=== PATIENT | female | born 1945 | race African-American/Black ===

== ENCOUNTER 2019-03-12 23:07 | Inpatient (IN) | payer OTHER ==
[~2019-03-12] VITALS: Ht 152.4 cm; Wt 71.4 kg
[2019-03-12 23:16] VITALS: BP 105/74
[2019-03-12] MEDS ORDERED: LIPITOR80 MG PO (23:20)
[2019-03-12] MEDS ORDERED: TOPAMAX50 MG PO (23:21)
[2019-03-12] MEDS ORDERED: LEVOTHYROXINE100 MCG PO (23:21)
[2019-03-12] MEDS ORDERED: COZAAR 25 MG TA25 M2 PO (23:21)
[2019-03-12] MEDS ORDERED: ASA81BEC PO (23:22)
[2019-03-12] MEDS ORDERED: CARVEDILOL12.5 MG PO (23:22)
[2019-03-13 00:25] LABS: ABSOLUTE NEUTROPHILS 2.2 thou/uL (1.4-8.2); BASOPHILS 0.9 % (0.0-2.0); HEMATOCRIT 39.2 % (37.0-47.0); HEMOGLOBIN 12.7 gm/dL (12.0-15.0); LYMPHOCYTES 36.8 % (24.0-44.0); MCH 30.8 pg (26.0-34.0); MCHC 32.4 g/dL (28.0-37.0); MCV 95.1 fL (80.0-100.0); MONOCYTES 5.4 % (1.0-8.0); PLATELET COUNT 139 thou/uL (150-400); POLYS 56.9 % (36.0-66.0); RBC 4.12 mil/uL (4.20-5.00); WBC 3.9 thou/uL (4.0-11.0)
[2019-03-13 01:02] LABS: ANION GAP 9 mmol/L (7-16); BUN 22 mg/dL (7-18); CALCIUM 10.5 mg/dL (8.5-10.1); CHLORIDE 111 mmol/L (98-107); CO2 21 mmol/L (21-32); CREATININE 1.5 mg/dL (0.6-1.0); GLUCOSE 161 mg/dL (74-106); POTASSIUM 4.7 mmol/L (3.5-5.1); SODIUM 141 mmol/L (136-145)
[2019-03-13 01:14] LABS: ALBUMIN 3.8 g/dL (3.4-5.0); LIPASE 299 U/L (73-393); SGOT 21 U/L (15-37); SGPT 23 U/L (30-65); TOTAL BILIRUBIN 0.5 mg/dL (<0.1-1.0); TOTAL PROTEIN 7.7 g/dL (6.4-8.2); TROPONIN-I <0.06 ng/mL (<0.06)
[2019-03-13 03:13] LABS: URINE BILIRUBIN NEGATIVE (Negative); URINE BLOOD NEGATIVE (Negative); URINE CLARITY TURBID; URINE COLOR YELLOW; URINE GLUCOSE-RANDOM* NEGATIVE (Negative); URINE KETONES NEGATIVE (Negative); URINE LEUKOCYTES-REFLEX NEGATIVE (Negative); URINE NITRITE-REFLEX NEGATIVE (Negative); URINE PROTEIN (DIPSTICK) NEGATIVE (Negative); URINE SPECIFIC GRAVITY >= 1.030 (1.005-1.035)
[2019-03-13 07:09] VITALS: BP 119/86
[2019-03-13 07:40] VITALS: BP 133/90
--- NOTE | 2019-03-13 07:56 | EKG ---
[place] [address] [facility] [address] [place] [address] ELECTROCARDIOGRAM REPORT Name: MEDLEYJULISA Room #: 170-8 ADM IN M.R.#: [id number] Admission: 03/13/19 Attend Phys: Toya Lemons MD Discharge: Date of : 43 Report #: [id number] THIS REPORT FOR: //name// [facility] ED Test Date: 2019-03-12 Test Time: 23:38:03 Pat Name: JULISA MEDLEY Department: Room: 170 Gender: F Gate Attendant: jazzy : 1945 Requested By: Jessee Neil Order Number: [id number] MD: Lew Iyer Measurements Intervals [place] Rate: 65 P: 66 PA: 162 QRS: -25 QRSD: 147 T: 14 QT: 427 QTc: 444 Interpretive Statements Sinus rhythm Probable left atrial enlargement Right bundle branch block Anteroseptal infarct, age indeterminate No previous ECG available for comparison Electronically Signed On 03-13-2019 7:55:51 ALTERATION HAND by Lew Iyer [email or web address] <ELECTRONICALLY SIGNED> By: Lew Iyer MD 03/13/19 0755 [id number] 37 Lew Iyer MD /RO
[2019-03-13 08:04] VITALS: BP 132/83
--- NOTE | 2019-03-13 09:31 | 2DMMODE ---
[facility] [place] [address] 2 D/M-MODE ECHOCARDIOGRAM Name: MEDLEYJULISA Room #: 356-P ADM IN M.R.#: [id number] Admission: 03/13/19 Attend Phys: Geovanna Simpson Discharge: Date of : 43 Report #: [id number] THIS REPORT FOR: //name// APPROVED REPORT Study performed: 03/13/2019 08:29:41 EXAM: Comprehensive 2D, Doppler, and color-flow Echocardiogram Patient Location: Echo lab Room #: [facility] Status: routine BSA: 1.85 HR: 69 bpm BP: 133/90 mmHg Rhythm: NSR Other Information Study Quality: Adequate Indications Dizziness and Vertigo Syncope 2D Dimensions RVDd: 34.75 mm IVSd: 12.00 (7-11mm) LVOT Diam: 20.72 (18-24mm) LVDd: 48.00 mm PWd: 12.00 (7-11mm) Ascending Ao: 37.00 (22-36mm) LVDs: 34.42 (25-40mm) Aortic Root: 36.12 mm Volumes Left Atrial Volume (Systole) Single Plane 4CH: 33.85 mL Single Plane 2CH: 33.95 mL LA ESV Index: 20.00 mL/m2 Aortic Valve AoV Peak Pito.: 1.29 m/s AO Peak Gr.: 6.68 mmHg LVOT Max P.36 mmHg LVOT Max V: 1.04 m/s DAIANA Vmax: 2.72 cm2 Mitral Valve E/A Ratio: 0.6 MV Decel. Time: 305.29 ms [facility] [address] [place] [address] 2 D/M-MODE ECHOCARDIOGRAM Name: EMDLEYJULISA Room #: 356-P [facility] IN .R.#: [id number] Admission: 03/13/19 Attend Phys: Geovanna Simpson Discharge: Date of : 43 Report #: [id number] MV E Max Pito.: 0.66 m/s MV A Pito.: 1.04 m/s MV PHT: 88.53 ms IVRT: 119.95 ms Pulmonary Valve PV Peak Pito.: 0.81 m/s PV Peak Gr.: 2.62 mmHg Pulmonary Vein P Vein S: 0.51 m/s P Vein D: 0.45 m/s P Vein S/D Ratio: 1.13 Tricuspid Valve TR Peak Pito.: 2.33 m/s RAP Estimate: 5.00 mmHg TR Peak Gr.: 22.00 mmHg PA Pressure: 27.00 mmHg Left Ventricle The left ventricle is normal size. Mild concentric left ventricular hypertrophy. Left ventricular systolic function is normal. LVEF is 55%. Mild diastolic dysfunction is present (impaired relaxation pattern). Right Ventricle The right ventricle is normal size. The right ventricular systolic function is normal. Atria The left atrium size is normal. The right atrium size is normal. Aortic Valve The aortic valve is normal in structure. Mild aortic regurgitation. There is no aortic valvular stenosis. Mitral Valve The mitral valve is normal in structure. Trace mitral regurgitation. No evidence of mitral valve stenosis. Tricuspid Valve The tricuspid valve is normal in structure. Trace tricuspid regurgitation. Estimated PAP is 25-30mmHg. Pulmonic Valve The pulmonary valve is normal in structure. Trace pulmonic [facility] [address] [place] [address] 2 D/M-MODE ECHOCARDIOGRAM Name: JULISA MEDLEY Room #: 356-P [facility] IN M.R.#: [id number] Admission: 03/13/19 Attend Phys: Geovanna Simpson Discharge: Date of : 43 Report #: [id number] regurgitation. Great Vessels The aortic root is normal in size. The ascending aorta is normal in size. IVC is normal in size and collapses >50% with inspiration. Pericardium There is no pericardial effusion. <Conclusion> The left ventricle is normal size. Mild concentric left ventricular hypertrophy. Left ventricular systolic function is normal. Mild diastolic dysfunction is present (impaired relaxation pattern). The right ventricle is normal size. The left atrium size is normal. Mild aortic regurgitation. Trace mitral regurgitation. Trace tricuspid regurgitation. Estimated PAP is 25-30mmHg. <ELECTRONICALLY SIGNED> By: Shiv Flores MD 03/13/19929 9 9 Shiv Flores MD /INF
[2019-03-13 10:45] VITALS: BP 125/80; BP 126/74; BP 132/85
[2019-03-13 11:54] LABS: TSH 0.024 uIU/mL (0.358-3.740)
[2019-03-13] MEDS ORDERED: AIMOVIG AU140 MG/1 M SUBQ (19:12)
[2019-03-13 19:43] VITALS: BP 147/101
[2019-03-13 23:10] LABS: GLYCOHEMOGLOBIN (HGB A1C) 5.6 % (4.8-5.6)
[2019-03-14 00:20] VITALS: BP 132/83
[2019-03-14 04:18] VITALS: BP 131/87
[2019-03-14 05:41] LABS: ABSOLUTE NEUTROPHILS 2.2 thou/uL (1.4-8.2); BASOPHILS 0.4 % (0.0-2.0); HEMATOCRIT 34.4 % (37.0-47.0); HEMOGLOBIN 11.3 gm/dL (12.0-15.0); LYMPHOCYTES 30.1 % (24.0-44.0); MCHC 32.8 g/dL (28.0-37.0); MCV 94.8 fL (80.0-100.0); PLATELET COUNT 126 thou/uL (150-400); POLYS 61.5 % (36.0-66.0); RBC 3.63 mil/uL (4.20-5.00); RDW 15.1 % (10.5-14.5); WBC 3.6 thou/uL (4.0-11.0)
[2019-03-14 05:56] LABS: CALCIUM 9.1 mg/dL (8.5-10.1); CREATININE 1.2 mg/dL (0.6-1.0); MAGNESIUM 1.9 mg/dL (1.8-2.4); POTASSIUM 4.1 mmol/L (3.5-5.1)
[2019-03-14 07:46] VITALS: BP 142/87
[2019-03-14 16:04] VITALS: BP 129/82
[2019-03-14 16:15] VITALS: BP 124/82; BP 137/84; BP 140/86
[2019-03-14 19:05] VITALS: BP 123/70
[2019-03-15 04:08] VITALS: BP 127/81
[2019-03-15 08:04] VITALS: BP 144/101; BP 148/93
[2019-03-15] MEDS ORDERED: CARVEDILOL12.5 MG PO (13:57)
[2019-03-15] MEDS ORDERED: SYNTHROID75 MCG PO (13:57)
[2019-03-15] MEDS ORDERED: MECLIZINE HCL25 MG PO (13:57)
[2019-03-15 14:07] VITALS: BP 148/93
[2019-03-15] MEDS ORDERED: PROTONIX 20 MG20 M1 PO (15:45)
[2019-03-15 17:05] VITALS: BP 117/76
== END 2019-03-15 20:00 | disposition home health service (06) | DRG 312 ==
LOC: ER 23:07 → EROBS 03-13 06:29 → 3W 03-13 06:29
PROVIDERS: Emergency Medicine; Nurse Practitioner; ADMIT Hospitalist
DX: R55 Syncope and collapse (principal); N17.9 Acute kidney failure, unspecified; I69.354 Hemiplegia and hemiparesis following cerebral infarction affecting left non-dominant side; G43.909 Migraine, unspecified, not intractable, without status migrainosus; I10 Essential (primary) hypertension; E03.9 Hypothyroidism, unspecified; E78.5 Hyperlipidemia, unspecified; F17.210 Nicotine dependence, cigarettes, uncomplicated; F12.90 Cannabis use, unspecified, uncomplicated; E86.0 Dehydration; R73.9 Hyperglycemia, unspecified; D69.6 Thrombocytopenia, unspecified; E74.39 Other disorders of intestinal carbohydrate absorption; E53.8 Deficiency of other specified B group vitamins; I73.9 Peripheral vascular disease, unspecified; Z90.49 Acquired absence of other specified parts of digestive tract; Z79.82 Long term (current) use of aspirin; I25.2 Old myocardial infarction; Z86.711 Personal history of pulmonary embolism; Z79.01 Long term (current) use of anticoagulants; Z82.49 Family history of ischemic heart disease and other diseases of the circulatory system; Z86.718 Personal history of other venous thrombosis and embolism; Z83.3 Family history of diabetes mellitus; Z79.899 Other long term (current) drug therapy
CPT/HCPCS: 10879

== ENCOUNTER 2019-03-18 11:12 | Emergency (ER) | payer OTHER ==
[~2019-03-18] VITALS: Ht 160 cm; Wt 68.0 kg
[~2019-03-18 11:12] MED LIST: AIMOVIG AU140 MG/1 M SUBQ; ASA81BEC PO; CARVEDILOL12.5 MG PO; COZAAR 25 MG TA25 M2 PO; LEVOTHYROXINE100 MCG PO; LIPITOR80 MG PO; MECLIZINE HCL25 MG PO; PROTONIX 20 MG20 M1 PO; SYNTHROID75 MCG PO; TOPAMAX50 MG PO
[2019-03-18] MEDS ORDERED: FIORINAL 50-321 EACH PO (12:31)
[2019-03-18 12:33] VITALS: BP 116/70
== END 2019-03-18 12:48 | disposition home or self-care (01) ==
LOC: ER 11:12
DX: G43.909 Migraine, unspecified, not intractable, without status migrainosus (principal); I10 Essential (primary) hypertension; E03.9 Hypothyroidism, unspecified; E78.5 Hyperlipidemia, unspecified; K21.9 Gastro-esophageal reflux disease without esophagitis; F17.210 Nicotine dependence, cigarettes, uncomplicated; Z86.73 Personal history of transient ischemic attack (TIA), and cerebral infarction without residual deficits

== ENCOUNTER 2020-01-03 09:20 | Emergency (ER) | payer OTHER ==
[~2020-01-03] VITALS: Ht 160 cm; Wt 71.2 kg
--- NOTE | ~2020-01-03 | EMS ---
[place] [address] EMS Patient Care Report Name: JULISA MEDLEY Room #: REG ENA Jasmine#: [id number] Admission: 01/03/20 Attend Phys: Discharge: Date of : 43 Report #: [id number] THIS REPORT FOR: //name// Report Transmitted: 01/03/2020 09:42 EMS Care Summary [place], [place]/[facility] Incident [id number] @ 01/03/2020 08:29 Incident Location [address] [place] [address] Patient JULISA MEDLEY Female, 74 Years 1945 Patient Address [address] [place] [address] Patient History Hypertension (HTN),Thyroid Disease, Patient Allergies No known allergies, Patient Medications Levothyroxine, Amlodipine, Carvedilol, Chief Complaint I got dizzy and had a hot flash Disposition Transported No Lights/[place] Dispatch Reason Sick Person Transported To [facility] Narrative Called to the scene for a sick. Upon arrival, P36 on the scene. Pt was CHRIS x [address] sitting on the steps in minor to no distress. Pt stated she woke up this morning and everything was normal and then after she had been up a while experience a brief episode of feeling dizzy and a [place] [address] EMS Patient Care Report Name: JULISA MEDLEY Room #: REG Mitali#: [id number] Admission: 01/03/20 Attend Phys: Discharge: Date of : 43 Report #: [id number] feels fine right now and does not want to go to the hospital but the family insists. P36 had obtained some vitals and was in the process of a 12 lead. Pt was assisted to the EMS cot and loaded into the ambulance. Attempted IV, D-stick. En route: pt states she feels fine and wants to just go home. RR to [facility]. Arrived: pt taken to ER #7 and moved to their bed w/o incident. Pt care & report to ER staff. Initial Vitals @08:41P: 226, @08:40P: 82,CO: 0,SpO2: 100, @PTAP: 85,SpO2: 82, @08:44P: 154,SpO2: 100, @PTAP: 78,BP: 88/62,SpO2: 100, @PTAP: 84,BP: 98/65,CO: 0,SpO2: 99, @08:44P: 78,R: 18,BP: 120/80,Pain: 0/10,GCS: 15,Glucose: 147,SpO2: 99,Revised Trauma: 12,LA Suspected: false @08:43P: 77,LA Suspected: false Assessments @09:39MENTAL:Person Oriented,Time Oriented,Place Oriented,Event Oriented,SKIN:HEENT:LUNG SOUNDS:ABDOMEN:PELVIS//GI:EXTREMITIES:Left Arm: No Abnormalities,Right Arm: No Abnormalities,Left Leg: No Abnormalities,Right Leg: No Abnormalities,PULSE:Radial: 2+ Normal,NEURO: Impression Dizziness Procedures @08:4312-Lead ECGResponse: UnchangedSucceeded@09:12Saline Lock cc (20 ga) Site: Forearm-RightResponse: UnchangedFailed@09:36ALS AssessmentResponse: UnchangedSucceeded@09:36StretcherResponse: Unchanged@09:363-Lead ECGResponse: UnchangedSucceeded Timeline SEAT PACK INSPECTOR,BP: / M,PULSE: 85,RR: R,SPO2: 82 Ox,ETCO2: ,BG: ,PAIN: ,GCS: , SEAT PACK INSPECTOR,BP: 88/62 M,PULSE: 78,RR: R,SPO2: 100 Ox,ETCO2: ,BG: ,PAIN: ,GCS: , SEAT PACK INSPECTOR,BP: 98/65 M,PULSE: 84,RR: R,SPO2: 99 Ox,ETCO2: ,BG: ,PAIN: ,GCS: , 08:28,Call Received 08:28,Dispatch Notified 08:29,Dispatched 08:31,En Route 08:38,On Scene 08:40,At Patient 08:40,BP: / M,PULSE: 82,RR: R,SPO2: 100 Ox,ETCO2: ,BG: ,PAIN: ,GCS: , 08:41,BP: / M,PULSE: 226,RR: R,SPO2: Ox,ETCO2: ,BG: ,PAIN: ,GCS: , 08:43,12-Lead ECG,Response: UnchangedSucceeded, [facility] [address] [place] [address] EMS Patient Care Report Name: GALINDOJULISA Room #: REG ENA Jasmine#: [id number] Admission: 01/03/20 Attend Phys: Discharge: Date of : 43 Report #: [id number] 08:43,BP: / M,PULSE: 77,RR: R,SPO2: Ox,ETCO2: ,BG: ,PAIN: ,GCS: , 08:44,BP: / M,PULSE: 154,RR: R,SPO2: 100 Ox,ETCO2: ,BG: ,PAIN: ,GCS: , 08:44,BP: 120/80 M,PULSE: 78,RR: 18 R,SPO2: 99 Ox,ETCO2: ,B,PAIN: 0,GCS: 15, 09:09,Depart Scene 09:12,Saline Lock cc 20 ga Site: Forearm-Right,Response: UnchangedFailed, 09:17,At Destination 09:36,ALS Assessment,Response: UnchangedSucceeded, 09:36,Stretcher,Response: Unchanged 09:36,3-Lead ECG,Response: UnchangedSucceeded, 09:45,Call Closed Disclaimer v1.1 Copyright 2020 [employer] This EMS Care Summary contains data elements from the applicable legal record (which may be displayed differently). It is designed to provide pertinent information for the following purposes: continuity of care, clinical quality, and state data reporting. The complete legal record is available to ED staff and administrators of the receiving hospital in ES's Patient Tracker. All data is provided "as is."
[~2020-01-03 09:20] MED LIST changes: +FIORINAL 50-321 EACH PO
[2020-01-03] MEDS ORDERED: NORVASC5 MG PO (09:35)
[2020-01-03 11:05] LABS: ABSOLUTE NEUTROPHILS 3.8 thou/uL (1.4-8.2); BASOPHILS 0.5 % (0.0-2.0); HEMATOCRIT 36.7 % (37.0-47.0); HEMOGLOBIN 12.2 gm/dL (12.0-15.0); LYMPHOCYTES 17.6 % (24.0-44.0); MCH 31.4 pg (26.0-34.0); MCHC 33.1 g/dL (28.0-37.0); MCV 94.8 fL (80.0-100.0); MONOCYTES 5.6 % (1.0-8.0); PLATELET COUNT 144 thou/uL (150-400); POLYS 76.3 % (36.0-66.0); RBC 3.87 mil/uL (4.20-5.00); RDW 15.1 % (10.5-14.5)
[2020-01-03 11:14] LABS: ANION GAP 11 mmol/L (7-16); BUN 26 mg/dL (7-18); CALCIUM 9.6 mg/dL (8.5-10.1); CHLORIDE 113 mmol/L (98-107); CO2 22 mmol/L (21-32); CREATININE 1.7 mg/dL (0.6-1.0); GLUCOSE 96 mg/dL (74-106); SODIUM 146 mmol/L (136-145)
[2020-01-03 11:25] LABS: URINE BILIRUBIN NEGATIVE (Negative); URINE BLOOD NEGATIVE (Negative); URINE CLARITY CLEAR; URINE COLOR YELLOW; URINE GLUCOSE-RANDOM* NEGATIVE (Negative); URINE KETONES NEGATIVE (Negative); URINE LEUKOCYTES-REFLEX 1+ (Negative); URINE NITRITE-REFLEX NEGATIVE (Negative); URINE PROTEIN (DIPSTICK) TRACE (Negative); URINE UROBILINOGEN 0.2 E.U./dl (0.2-1.0)
[2020-01-03 11:25] LABS: ALBUMIN 3.7 g/dL (3.4-5.0); SGOT 13 U/L (15-37); SGPT 13 U/L (30-65); TOTAL BILIRUBIN 0.4 mg/dL (0.2-1.0); TOTAL PROTEIN 7.1 g/dL (6.4-8.2); TROPONIN-I <0.06 ng/mL (<0.06)
[2020-01-03 11:39] VITALS: BP 147/87
[2020-01-03 11:42] LABS: BACTERIA-REFLEX 1-9 Few /HPF (None Seen); CRYSTALS None Seen /LPF (None Seen); HYALINE CASTS 0-3 Few /LPF (None Seen); SQUAMOUS >10 Many /LPF (0-3); URINE RBC None Seen /HPF (0-2); URINE WBC-REFLEX 0-5 Rare /HPF (0-5)
--- NOTE | 2020-01-03 15:32 | EKG ---
[facility] [place] [address] [place] [address] ELECTROCARDIOGRAM REPORT Name: JULISA MEDLEY [id number] Admission: 01/03/20 Attend Phys: Discharge: 01/03/20 Date of : 43 Report #: [id number] THIS REPORT FOR: cc: [facility] - Clinic physician unknown [facility] - Clinic physician unknown Mushtaq Gruber MD [facility] ~ THIS REPORT FOR: //name// [facility] ED Test Date: 2020-01-03 Test Time: 09:34:36 Pat Name: JULISA MEDLEY Department: Room: Gender: F Special Education Coordinator: : 1945 Requested By: Curly Powell Order Number: [id number] MD: Mushtaq Gruber Measurements Intervals [place] Rate: 68 P: 70 VA: 157 QRS: -20 QRSD: 151 T: -42 QT: 407 QTc: 433 Interpretive Statements Sinus rhythm Right bundle branch block Compared to ECG 03/12/2019 23:38:03 PROBABLE ANTEROSEPTAL INFARCT, OLD Electronically Signed On 01-03-2020 15:31:56 CDT by Mushtaq Gruber [email or web address] <ELECTRONICALLY SIGNED> By: Mushtaq Gruber MD, FACC 01/03/20 1531 0934 0934 Mushtaq Gruber MD, HAWA /EPI
== END 2020-01-03 11:55 | disposition home or self-care (01) ==
LOC: ER 09:20
PROVIDERS: Emergency Medicine
DX: R42 Dizziness and giddiness (principal); I12.9 Hypertensive chronic kidney disease with stage 1 through stage 4 chronic kidney disease, or unspecified chronic kidney disease; N18.9 Chronic kidney disease, unspecified; G43.909 Migraine, unspecified, not intractable, without status migrainosus; E03.9 Hypothyroidism, unspecified; E78.5 Hyperlipidemia, unspecified; K21.9 Gastro-esophageal reflux disease without esophagitis; F17.210 Nicotine dependence, cigarettes, uncomplicated; Z79.899 Other long term (current) drug therapy; Z79.82 Long term (current) use of aspirin

== ENCOUNTER 2020-06-10 14:23 | Emergency (ER) | payer OTHER ==
[~2020-06-10] VITALS: Ht 160 cm; Wt 72.6 kg
[~2020-06-10 14:23] MED LIST changes: +NORVASC5 MG PO
[2020-06-10 15:39] VITALS: BP 164/95
== END 2020-06-10 15:40 | disposition home or self-care (01) ==
LOC: ER 14:23
DX: S80.12XA Contusion of left lower leg, initial encounter (principal); M79.604 Pain in right leg; R53.1 Weakness; G43.909 Migraine, unspecified, not intractable, without status migrainosus; I10 Essential (primary) hypertension; E03.9 Hypothyroidism, unspecified; K21.9 Gastro-esophageal reflux disease without esophagitis; E78.5 Hyperlipidemia, unspecified; F17.210 Nicotine dependence, cigarettes, uncomplicated; Z86.73 Personal history of transient ischemic attack (TIA), and cerebral infarction without residual deficits; Z79.899 Other long term (current) drug therapy; Z79.82 Long term (current) use of aspirin; V89.2XXA Person injured in unspecified motor-vehicle accident, traffic, initial encounter; Y93.89 Activity, other specified; Y92.488 Other paved roadways as the place of occurrence of the external cause; Y99.8 Other external cause status

== ENCOUNTER 2021-01-13 15:35 | Emergency (ER) | payer OTHER ==
[~2021-01-13] VITALS: Ht 160 cm; Wt 72.6 kg
[2021-01-13] MEDS ORDERED: NEURONTIN 300M300 M2 PO (15:43)
[2021-01-13] MEDS ORDERED: NORCO5 PO (17:33)
[2021-01-13 17:55] VITALS: BP 200/118
== END 2021-01-13 18:09 | disposition home or self-care (01) ==
LOC: ER 15:35
DX: S80.11XA Contusion of right lower leg, initial encounter (principal); G43.909 Migraine, unspecified, not intractable, without status migrainosus; I10 Essential (primary) hypertension; E03.9 Hypothyroidism, unspecified; E78.5 Hyperlipidemia, unspecified; K21.9 Gastro-esophageal reflux disease without esophagitis; F17.210 Nicotine dependence, cigarettes, uncomplicated; Z86.73 Personal history of transient ischemic attack (TIA), and cerebral infarction without residual deficits; Z79.82 Long term (current) use of aspirin; Z79.891 Long term (current) use of opiate analgesic; Z79.899 Other long term (current) drug therapy; W10.9XXA Fall (on) (from) unspecified stairs and steps, initial encounter; Y93.89 Activity, other specified; Y92.89 Other specified places as the place of occurrence of the external cause; Y99.8 Other external cause status

== ENCOUNTER 2021-03-11 10:47 | Emergency (ER) | payer OTHER ==
[~2021-03-11] VITALS: Ht 160 cm; Wt 72.6 kg
[~2021-03-11 10:47] MED LIST changes: +NEURONTIN 300M300 M2 PO; +NORCO5 PO
[2021-03-11 13:02] VITALS: BP 135/98
== END 2021-03-11 13:30 | disposition home or self-care (01) ==
LOC: ER 10:47
DX: M17.0 Bilateral primary osteoarthritis of knee (principal); G43.909 Migraine, unspecified, not intractable, without status migrainosus; I10 Essential (primary) hypertension; E03.9 Hypothyroidism, unspecified; E78.5 Hyperlipidemia, unspecified; K21.9 Gastro-esophageal reflux disease without esophagitis; F17.210 Nicotine dependence, cigarettes, uncomplicated; Z79.899 Other long term (current) drug therapy

== ENCOUNTER 2021-04-28 03:29 | Emergency (ER) | payer OTHER ==
[~2021-04-28] VITALS: Ht 160 cm; Wt 72.6 kg
--- NOTE | ~2021-04-28 | EMS ---
[address] [address] EMS Patient Care Report Name: JULISA MEDLEY Room #: DEP ENA Jasmine#: [id number] Admission: 04/28/21 Attend Phys: Discharge: 04/28/21 Date of : 43 Report #: [id number] THIS REPORT FOR: //name// Report Transmitted: 04/29/2021 10:00 EMS Care Summary [place], [place]/[facility] Incident [id number] @ 04/28/2021 02:38 Incident Location [address] [place], [place] [id number] Patient JULISA MEDLEY Female, 75 Years 1945 Patient Address [address] [place], [place] [id number] Patient History Hypertension (HTN),Stroke/CVA,Novel Coronavirus (COVID-19), Patient Allergies No known allergies, Patient Medications Aspirin, Atorvastatin, Carvedilol, Chief Complaint LOWER BACK MUSCEL SPASMS Disposition Transported No Lights/[place] Dispatch Reason Back Pain (Non-Traumatic) Transported To [facility] Narrative CALLED TO PT HOME FOR MUSCEL SPASMS IN LOW BACK. UPON ARRIVAAL FOUND PT SITTING IN A CHAIR IN HER BEDROOM, PT IS A & O X 4 WITH C/C LOW BACK MUSCEL SPASMS THAT JUST STARTED & WANTS TO GO TO ER . PT PUT ON A FACE MASK PER EMS REQUEST. PT [address] [address] EMS Patient Care Report Name: JULISA MEDLEY Room #: DEP Mitali#: [id number] Admission: 04/28/21 Attend Phys: Discharge: 04/28/21 Date of : 43 Report #: [id number] ASSISTED TO STAIRCHAIR & MOVED DOWN 2 FLIGHTS OF STAIRS . PT ASSISTED TO STANDING POSITION & SITTING ON COT, PT SECURED TO COT VIA SEAT BELTS & RAILS RAISED, PT MOVED TO AMBULANCE & TRANSPORTED TO [facility] WITHOUT INCIDENT. UPON ARRIVAL TO HOSPITAL PT TAKEN TO RM # 11, PT MOVED TO ER BED VIA COT SHEET, EMS & 2 NURSES. PT PURSE LEFT ON PT BED. PT REPORT GIVEN TO ACCEPTING NURSE. Initial Vitals @03:36P: 82,R: 16,BP: 150/90,Pain: 2/10,GCS: 15,SpO2: 97,Revised Trauma: 12, @03:37P: 86,R: 16,BP: 134/64,Pain: 2/10,GCS: 15,Revised Trauma: 12, Assessments @03:18MENTAL:No Abnormalities,SKIN:HEENT:Head/Face: No Abnormalities,Eyes: No Abnormalities,Neck/Airway: No Abnormalities,LUNG SOUNDS:ABDOMEN:PELVIS//GI:EXTREMITIES:Left Arm: No Abnormalities,Right Arm: No Abnormalities,Left Leg: No Abnormalities,Right Leg: No Abnormalities,PULSE:NEURO:No Abnormalities, Impression Back Pain Procedures @03:22 BLS Assessment Response: Unchanged @:22 Stretcher Response: Unchanged Timeline 02:36,Call Received 02:36,Dispatch Notified 02:38,Dispatched 02:38,En Route 02:59,On Scene 03:02,At Patient 03:19,Depart Scene 03:22,BLS Assessment,Response: Unchanged 03:22,Stretcher,Response: Unchanged 03:24,At Destination 03:36,BP: 150/90 M,PULSE: 82,RR: 16 R,SPO2: 97 Ox,ETCO2: ,BG: ,PAIN: 2,GCS: 15, 03:37,BP: 134/64 M,PULSE: 86,RR: 16 R,SPO2: Ox,ETCO2: ,BG: ,PAIN: 2,GCS: 15, 03:52,Call Closed Disclaimer v1.1 Copyright 2021 [employer] This EMS Care Summary contains data elements from the applicable legal record (which may be displayed differently). It is designed to provide pertinent information for the following purposes: continuity of care, clinical quality, [address] [address] EMS Patient Care Report Name: JULISA MEDLEY Room #: DEP ENA Jasmine#: [id number] Admission: 04/28/21 Attend Phys: Discharge: 04/28/21 Date of : 43 Report #: [id number] and state data reporting. The complete legal record is available to ED staff and administrators of the receiving hospital in [employer] Patient Tracker. All data is provided "as is."
[2021-04-28] MEDS ORDERED: FLEXERIL PO (04:36)
[2021-04-28] MEDS ORDERED: ALEVE220 M1 PO (04:36)
[2021-04-28 05:37] VITALS: BP 159/87
== END 2021-04-28 05:37 ==
LOC: ER 03:29
DX: M25.552 Pain in left hip (principal); G43.909 Migraine, unspecified, not intractable, without status migrainosus; I10 Essential (primary) hypertension; E03.9 Hypothyroidism, unspecified; E78.5 Hyperlipidemia, unspecified; K21.9 Gastro-esophageal reflux disease without esophagitis; F17.210 Nicotine dependence, cigarettes, uncomplicated; Z79.899 Other long term (current) drug therapy